=== PATIENT | female | born 1965 | race Caucasian/White ===

== ENCOUNTER → 2017-01-27 | Outpatient (CLI) | payer OTHER | LOC: RAD 10:54 | DX: R07.0 Pain in throat (principal) | CPT/HCPCS: 74022 ==

== ENCOUNTER 2017-01-29 19:14 | Emergency (ER) | payer OTHER ==
[2017-01-29 20:28] LABS: HEMOGLOBIN 12.6 gm/dl (12.3-15.3); RED BLOOD COUNT 5.16 M/UL (4.00-5.10)
== END 2017-01-29 22:40 | disposition home or self-care (01) ==
LOC: ER1 19:14
PROVIDERS: Family Medicine
DX: R10.11 Right upper quadrant pain (principal); R10.13 Epigastric pain; G89.29 Other chronic pain; R11.10 Vomiting, unspecified; F17.200 Nicotine dependence, unspecified, uncomplicated; Z88.0 Allergy status to penicillin; Z79.899 Other long term (current) drug therapy
CPT/HCPCS: 36415; 80053; 81001; 82150; 82550; 82553; 83690; 83874; 84484; 85025; 96361; 96374; 99284; C9113

== ENCOUNTER 2020-08-29 14:55 | Emergency (ER) | payer MEDICARE, OTHER ==
[~2020-08-29 14:55] MED LIST: IBUPROFEN600 MG PO; MACROBID 100 M100 MG PO
[2020-08-29 16:00] LABS: RED BLOOD COUNT 4.29 M/UL (4.00-5.10); WHITE BLOOD COUNT 12.9 K/UL (4.5-11.0)
[2020-08-29] MEDS ORDERED: ZOFRAN4 MG PO (18:19)
[2020-08-29] MEDS ORDERED: OMNICEF 300 MG300 MG PO (18:19)
== END 2020-08-29 20:04 | disposition home or self-care (01) ==
LOC: ER1 14:55
PROVIDERS: Physician Assistant
DX: N39.0 Urinary tract infection, site not specified (principal); N12 Tubulo-interstitial nephritis, not specified as acute or chronic; F17.210 Nicotine dependence, cigarettes, uncomplicated; Z20.822 Contact with and (suspected) exposure to COVID-19; I10 Essential (primary) hypertension; Z88.0 Allergy status to penicillin
CPT/HCPCS: 0240U; 71045; 80053; 81001; 83605; 85025; 87040; 87077; 87086; 87186; 96372; 96374; 99284; J0696; J2405; J7030

== ENCOUNTER → 2021-07-18 | Outpatient (CLI) | payer MEDICARE, OTHER ==
[~2021-07-18] MED LIST changes: +OMNICEF 300 MG300 MG PO; +ZOFRAN4 MG PO
[2021-07-18 12:30] LABS: HEMOGLOBIN 12.5 gm/dl (12.3-15.3); RED BLOOD COUNT 4.99 M/UL (4.00-5.10); WHITE BLOOD COUNT 7.1 K/UL (4.5-11.0)
== END ==
LOC: LAB 11:53
DX: N28.9 Disorder of kidney and ureter, unspecified (principal)
CPT/HCPCS: 80069; 81001; 82570; 84156; 85025; 85027